=== PATIENT | female | born 1975 | race Caucasian/White ===

== ENCOUNTER 2023-11-22 05:32 | Day surgery (SDC) | payer BC, OTHER ==
[~2023-11-22 05:32] MED LIST: Sodium Chloride 0.9% 10 ML Syringe FLUSH PRN; Sodium Chloride 0.9% 10 ML Syringe FLUSH SCH
[2023-11-22] MEDS: Dextrose 5%-0.45% NaCl 1,000 ML IV SCH (05:47)
[2023-11-22] MEDS ORDERED: Midazolam 1 MG/ML 2 ML SDV ONE (06:15)
[2023-11-22] MEDS ORDERED: fentaNYL 100 MCG/2 ML SDV ONE (06:15)
[2023-11-22] MEDS: fentaNYL 100 MCG/2 ML SDV IV ONE ×3 (06:24→06:35)
[2023-11-22] MEDS: Midazolam 1 MG/ML 2 ML SDV IV ONE ×6 (06:25→06:33)
== END 2023-11-22 08:30 | disposition home or self-care (01) ==
LOC: DL.ENDO 05:32
PROVIDERS: ATTEND Internal Medicine Gastroenterology
DX: Z12.11 Encounter for screening for malignant neoplasm of colon (principal); I10 Essential (primary) hypertension; E66.9 Obesity, unspecified; Z68.38 Body mass index [BMI] 38.0-38.9, adult; Z87.891 Personal history of nicotine dependence
CPT/HCPCS: J2250; J3010; J7042